=== PATIENT | female | born 1995 | race Caucasian/White ===

== ENCOUNTER 2019-04-24 00:08 | Inpatient (IN) | payer MEDICAID, OTHER ==
--- NOTE | 2019-04-23 23:57 | PDOC.LDHP ---
Labor and Delivery H&P Chief complaint: scheduled induction HPI: 23 y/o at 39 and 0/7 weeks for elective term induction of Labor. Current gestational age (weeks): 39 Due date: 05/01/19 Grav: 1 Para: 0 Current complications: none Abnormal US findings: No Current medications: none Previous surgical history: none Social history: none - Physical Exam Vital signs reviewed and normal: yes General: NAD Heart: RRR Lungs: CTAB Abdomen: gravid Extremeties: no edema FHT: category 1 - Assessment L&D Assessment: elective induction at term - Plan Plan: admit to L&D, cervical ripening
[~2019-04-24 00:08] MED LIST: Acetaminophen 500 MG TAB PO PRN; Butorphanol Tartrate 1 MG/ML VIAL SLOW IVP PRN; Carboprost 250 MCG/ML AMP IM PRN; Diphenoxylate HCl/Atropine Tablet PO PRN; HYDROcodone/Acetaminophen 5/325 mg Tablet PO PRN; Ibuprofen 800 MG TAB PO PRN; Lidocaine 1% (PF) 30 ML VIAL SC PRN; Methylergonovine 0.2 MG/ML VIAL IM PRN; Misoprostol 200 MCG TAB PR PRN; NS / Oxytocin 40 units/1000ml 1,000 ML IV PRN; NS w/ Oxytocin 10 units 500 ML IV SCH; Ondansetron PF 4 MG/2 ML Vial IVP PRN; Promethazine HCl 25 MG/ML VIAL IM PRN; Zolpidem Tartrate 5 MG TAB PO PRN; hydrALAZINE 20 MG/ML VIAL SLOW IVP PRN
[2019-04-24 01:04] VITALS: BMI 30.2
[2019-04-24 01:11] LABS: Hemoglobin 11.9 g/dL (12.0-16.0); Mean Corpuscular HGB CONC 35.8 g/dL (32.0-36.0); Mean Corpuscular Hemoglobin 33.1 pg (27.0-31.0); Mean Corpuscular Volume 92.6 fL (78.0-98.0); Mean Platelet Volume 7.3 fL (7.4-10.4); Platelet Count 318 thou/uL (130-400); RBC Distribution Width 13.2 % (11.5-14.5); Red Blood Cell (RBC) Count 3.61 mill/uL (4.20-5.40); White Blood Cell (WBC) Count 11.5 thou/uL (4.8-10.8)
[2019-04-24] MEDS: Misoprostol 100 MCG TAB VAG SCH ×2 (01:32→01:33)
[2019-04-24] MEDS: Lactated Ringer's 1,000 ML IV SCH ×2 (01:34→08:05)
[2019-04-24 01:55] LABS: Hep B Surf Ag Non-Reactive S/CO (NonReactive)
[2019-04-24] MEDS ORDERED: Fentanyl 4 mcg/Bup 0.1% Cadd 100 ML ONE ×2 (04:07→10:15)
[2019-04-24 04:46] LABS: Syphilis Antibody Nonreactive (Nonreactive); Syphilis Antibody Index 0.02 S/CO (<1.00 Non-Reactive)
[2019-04-24] MEDS ORDERED: Promethazine HCl 25 MG/ML VIAL IM PRN ×2 (04:46→15:52)
[2019-04-24] MEDS ORDERED: Lactated Ringer's 500 ML IV PRN (04:46)
[2019-04-24] MEDS ORDERED: diphenhydrAMINE 50 MG/ML VIAL IVP PRN (04:46)
[2019-04-24] MEDS ORDERED: Naloxone HCl 0.4 mg/ml Vial IVP PRN ×2 (04:46)
[2019-04-24] MEDS ORDERED: ePHEDrine/0.9% NaCl/PF SYRINGE 50 mg/10 ml SLOW IVP PRN (04:46)
[2019-04-24] MEDS ORDERED: Acetaminophen 325 MG TAB PO PRN (04:46)
[2019-04-24] MEDS ORDERED: Ondansetron PF 4 MG/2 ML Vial IVP PRN ×2 (04:46→15:52)
[2019-04-24] MEDS ORDERED: Fentanyl 4 mcg/Bupivacaine 0.1% Cassette 100 ML EPIDURAL SCH (05:00)
[2019-04-24] MEDS ORDERED: Communication Order-Pharmacy FS SCH (05:00)
[2019-04-24] MEDS ORDERED: Bupivacaine PF 0.5% 30 ML VIAL ONE (09:00)
[2019-04-24] MEDS ORDERED: Bupivacaine/Epinephrine 0.25% 30 ML VIAL ONE (09:00)
[2019-04-24] MEDS ORDERED: Lidocaine 1% (PF) 30 ML VIAL ONE (09:05)
[2019-04-24] MEDS ORDERED: NS / Oxytocin 40 units/1000ml 1,000 ML ONE (09:05)
[2019-04-24] MEDS ORDERED: Milk Of Magnesia 30 ML UDCUP PO PRN (15:52)
[2019-04-24] MEDS ORDERED: HYDROcodone/Acetaminophen 5/325 mg Tablet PO PRN ×2 (15:52)
[2019-04-24] MEDS ORDERED: Bisacodyl 10 MG SUPP PR PRN (15:52)
[2019-04-24] MEDS ORDERED: Lanolin Ointment 7 GM TUBE TOP PRN (15:52)
[2019-04-24] MEDS ORDERED: Zolpidem Tartrate 5 MG TAB PO PRN (15:52)
[2019-04-24] MEDS ORDERED: Preparation H Ointment 28 GM TUBE PR PRN (15:52)
[2019-04-24] MEDS ORDERED: Benzocaine-Menthol 82.5 ML CAN TOP PRN (15:52)
[2019-04-24] MEDS ORDERED: NS / Oxytocin 40 units/1000ml 1,000 ML IV SCH (15:52)
[2019-04-24] MEDS ORDERED: diphenhydrAMINE 25 MG CAP PO PRN (15:52)
[2019-04-24] MEDS ORDERED: hydrALAZINE 20 MG/ML VIAL SLOW IVP PRN (15:52)
[2019-04-24] MEDS: Ferrous Sulfate 325 MG TAB PO SCH (17:06)
[2019-04-24] MEDS ORDERED: FLU VACC QS2019-20(6MOS UP)/PF 60 MCG/0.5 ML SYRINGE IM ONE (21:00)
[2019-04-24] MEDS: Ibuprofen 800 MG TAB PO SCH (21:45)
[2019-04-24] MEDS: Docusate Calcium (SURFAK) 240 MG CAP PO SCH (21:46)
--- NOTE | 2019-04-25 01:24 | DN ---
DATE OF PROCEDURE: 04/24/2019 TIME OF SERVICE: At 1049 hours, [place] Daylight Savings Time. PREOPERATIVE DIAGNOSIS: Intrauterine at 39 weeks and zero days with a term induction of labor. POSTOPERATIVE DIAGNOSIS: Intrauterine at 39 weeks and zero days with a term induction of labor. PROCEDURE PERFORMED: Spontaneous vaginal delivery over a small right sidewall vaginal laceration. FINDINGS: Viable female infant weighing 3231 g or 7 pounds 2 ounces. Apgars 8 and 9. Also, nuchal cord x2 around the neck. QUANTITATIVE BLOOD LOSS: 250 mL. COMPLICATIONS: None. PROCEDURE IN DETAIL: The patient presented to [facility] where she was admitted to the labor and delivery service. The patient underwent a normal and uneventful labor with normal cervical dilatation until she was found to be completely dilated. She was then allowed to push and was able to bring the baby down and delivered the baby in a vertex presentation without difficulties. Once the head delivered in occiput anterior position, the shoulders followed spontaneously along with the rest of the baby's body. Once out the baby's mouth and nose were bulb suctioned. The cord was clamped and cut and baby was handed to waiting attendants. Cord blood was collected. Gentle fundal massage was performed and the placenta delivered intact without problems. Hemostasis was assured. Quantitative blood loss was calculated. Inspection of the cervix, vaginal vault, and perineum did not reveal any lacerations needing suturing. Once again, hemostasis was within normal limits and the patient was allowed to recover in the labor and delivery room. Baby went to nursery. Job ID: [id number]
[2019-04-25] MEDS: Ibuprofen 800 MG TAB PO SCH ×3 (04:57→22:09)
[2019-04-25 06:11] LABS: Hemoglobin 10.4 g/dL (12.0-16.0); Mean Corpuscular HGB CONC 35.3 g/dL (32.0-36.0); Mean Corpuscular Hemoglobin 33.4 pg (27.0-31.0); Mean Corpuscular Volume 94.7 fL (78.0-98.0); Mean Platelet Volume 7.5 fL (7.4-10.4); Platelet Count 272 thou/uL (130-400); RBC Distribution Width 13.3 % (11.5-14.5); White Blood Cell (WBC) Count 15.8 thou/uL (4.8-10.8)
[2019-04-25] MEDS: Ferrous Sulfate 325 MG TAB PO SCH ×2 (08:25→16:51)
[2019-04-25] MEDS: Prenatal Vitamin 1 TAB PO SCH (08:27)
[2019-04-25] MEDS: Docusate Calcium (SURFAK) 240 MG CAP PO SCH ×2 (08:27→22:10)
[2019-04-25] MEDS ORDERED: Measles/Mumps/Rubella 10 MCG/0.5 ML VIAL SC ONE (09:00)
[2019-04-25] MEDS ORDERED: Varicella virus, LIVE 0.5 ML VIAL SC ONE (09:00)
--- NOTE | 2019-04-25 12:43 | PDOC.PP ---
Post Progress Note Post Day #: 1 PO intake tolerated: yes Flatus: yes Ambulation: yes Vital Signs (12 hours) Temp Pulse Resp BP Pulse Ox 04/25/19 12:09 97.1 F L 64 16 131/83 04/25/19 08:00 97.2 F L 04/25/19 07:56 72 18 125/84 04/25/19 04:55 98.3 F 78 18 125/86 99 04/25/19 00:50 98.5 F 111 H 18 131/79 98 Weight Weight 171 lb - Physical Examination General: NAD Cardiovascular: no m/r/g, RRR Respiratory: clear to auscultation bilaterally Abdominal: + bowel sounds, lochia Extremities: negative homans (B) Neurological: no gross focal deficits Psychiatric: A&Ox3 (DC tomorrow morning.), normal affect Result Diagrams: 04/25/19 05:51 Additional Labs: Post Labs Blood Type A POSITIVE 04/24/19 01:38 Hep Bs Antigen Non-Reactive S/CO (NonReactive) 04/24/19 01:03
[2019-04-25] MEDS: Adacel (T-DAP) 0.5 ML SYRINGE IM ONE (16:56)
[2019-04-26] MEDS: Ibuprofen 800 MG TAB PO SCH (05:57)
[2019-04-26 08:06] VITALS: BP 130/83; TEMP 98
[2019-04-26] MEDS: Prenatal Vitamin 1 TAB PO SCH (09:38)
[2019-04-26] MEDS: Ferrous Sulfate 325 MG TAB PO SCH (09:38)
[2019-04-26] MEDS: Docusate Calcium (SURFAK) 240 MG CAP PO SCH (09:39)
[2019-04-26] MEDS: Adacel (T-DAP) 0.5 ML SYRINGE IM ONE (10:44)
[2019-04-26] MEDS ORDERED: FLU VACC QS2019-20(6MOS UP)/PF 60 MCG/0.5 ML SYRINGE IM ONE (10:45)
--- NOTE | 2019-04-26 15:00 | DIS ---
DATE OF ADMISSION: 04/24/2019 DATE OF DISCHARGE: 04/26/2019 ADMITTING DIAGNOSES: 1. Intrauterine at 39 weeks. 2. An elective induction of labor. DISCHARGE DIAGNOSES: 1. Intrauterine at 39 weeks. 2. An elective induction of labor. PROCEDURE PERFORMED: Term spontaneous vaginal delivery. HOSPITAL COURSE: The patient is a 23-year-old female with an intrauterine at 39 weeks gestation, who presented for elective induction of labor resulting in a term spontaneous vaginal delivery. Her course has been uncomplicated. Today, she is day. She is tolerating p.o., voiding on her own, having decreased lochia, and good pain control. PHYSICAL EXAMINATION: VITAL SIGNS: Most recent vital signs, blood pressure is 126/89, temperature is 97.6, pulse of 86, respiratory rate is 16, saturating is 99% on room air. GENERAL: She appears to be in no acute distress. She is alert, oriented, cooperative, and pleasant to interact with. HEENT: Head is normocephalic and atraumatic. Fundus is firm. EXTREMITIES: Nontender, nonedematous. LABORATORY DATA: Her post delivery hemoglobin is 10.4, hematocrit is 29.4, platelets of 272,000. DISCHARGE INSTRUCTIONS: The patient will be discharged to home. She has instructions to follow up with her primary OB, Dr. Eduardo in 6 weeks for routine visit or sooner if she experiences fever, increasing pain, or bleeding. The patient will be discharged to home with ibuprofen [id number] for pain control. Job ID: [id number]
== END 2019-04-26 11:25 | disposition home or self-care (01) | DRG 807 ==
LOC: L&D 00:08 → 3SW 13:17
PROVIDERS: ADMIT Obstetrics & Gynecology; ATTEND Obstetrics & Gynecology
PROC: 10E0XZZ Delivery of Products of Conception, External Approach (ICD-10-PCS; principal; 2019-04-24)
PROC: 3E033VJ Introduction of Other Hormone into Peripheral Vein, Percutaneous Approach (ICD-10-PCS; 2019-04-24)
PROC: 3E0P7VZ Introduction of Hormone into Female Reproductive, Via Natural or Artificial Opening (ICD-10-PCS; 2019-04-24)
PROC: 3E02340 Introduction of Influenza Vaccine into Muscle, Percutaneous Approach (ICD-10-PCS; 2019-04-26)
DX: O69.81X0 Labor and delivery complicated by cord around neck, without compression, not applicable or unspecified (principal); Z37.0 Single live birth; Z3A.39 39 weeks gestation of pregnancy; Z23 Encounter for immunization
CPT/HCPCS: 36415; 85027; 86780; 86850; 86900; 86901; 87340; 90471; 90686; 90715; G0008; J2001; J2405; J2590; S0020